=== PATIENT | female | born 1990 | race Caucasian/White ===

== ENCOUNTER 2017-11-10 13:10 | Outpatient (CLI) | payer BC, OTHER ==
--- NOTE | 2017-11-10 16:09 | EKG ---
Test Reason : Blood Pressure : / mmHG Vent. Rate : 106 BPM Atrial Rate : 106 BPM P-R Int : 158 ms QRS Dur : 066 ms QT Int : 332 ms P-R-T Axes : 053 054 035 degrees QTc Int : 441 ms Sinus tachycardia Otherwise normal ECG Confirmed by ALEXX GREENWOOD ([id number]) on 11/10/2017 4:08:41 PM Referred By: [facility] Confirmed By:ALEXX GREENWOOD
== END 2017-11-10 13:11 | disposition home or self-care (01) ==
LOC: LABBT 13:10
PROVIDERS: ATTEND Specialist
DX: Z01.818 Encounter for other preprocedural examination (principal); K80.12 Calculus of gallbladder with acute and chronic cholecystitis without obstruction
CPT/HCPCS: 93005; 93010

== ENCOUNTER 2017-11-11 07:21 | Day surgery (SDC) | payer BC, OTHER ==
[2017-11-10 13:29] VITALS: BMI 46.5
--- NOTE | 2017-11-11 02:25 | HP ---
HISTORY OF PRESENT ILLNESS: Sandra Isaac is a 27-year-old female referred by Deanna Medina, fo r symptomatic gallstones. Patient has been having symptoms since 2012. That is being more severe in the last 4 weeks. She presented to Dr. Medina recently, complaining of characteristic epigastric r ight upper quadrant pain, back radiation, associated with nausea occurring postprandial with almost a ny type of food. Ultrasound obtained, 11/02/2017, [facility] revealing fatty l iver and cholelithiasis and a bile duct of 4 mm. Laboratories obtained at that time revealed normal CBC, comprehensive metabolic profile. Liver function tests were normal. The patient is 5 feet 7 inc hes, 297 pounds, 46 BMI. 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 Today, she was appreciated to have tenderness on exam. The plan is for laparo scopic video cholecystectomy. She understands risks of infection, bleeding, visceral and biliary inj ury and consents. We will plan this tomorrow as an outpatient. Patient has been obese most of her life. She is taking antihypertensive medications. Today, blood p ressure 190/121 (in pain) and has a fatty liver on ultrasound. She denies problems with GERD, stress urinary incontinence. She has menstruation dysfunction, is on oral hormonal replacement to correct that. The patient is interested in bariatric surgery and given her bariatric seminar dates and discu ssed bariatric options. She initially mentioned the laparoscopic adjustable band, but I have discred ited that and explained why we do not perform that anymore due to its poor success and durability and especially in a young age patient. Patient desires to proceed with laparoscopic cholecystectomy and she will attend our bariatric seminar and discuss bariatric surgery in the future. TOBACCO: Less than one-half pack per day. ALCOHOL: Rarely. MEDICATIONS: Amlodipine 5 mg a day, aspirin once a day. ALLERGIES: None. PAST SURGICAL HISTORY: Noncontributory. REVIEW OF SYSTEMS: Ten point noncontributory. PAST MEDICAL HISTORY: Hypertension and fatty liver. PHYSICAL EXAMINATION: VITAL SIGNS: 297 pounds, 5 feet 7 inches, 46 BMI, 190/121 (Patient in pain), 128 heart rate, 99.1 de grees. LUNGS: Clear to auscultation. CARDIAC: Rhythm without murmur or gallop. ABDOMEN: Soft, tenderness in right upper quadrant with positive Ngo's, obese. EXTREMITIES: Unremarkable. No ankle edema, no venous stasis changes. ASSESSMENT AND PLAN: 1. Acute cholecystitis, cholecystitis. I have recommend laparoscopic video cholecystectomy. Risk o f infection, bleeding, visceral and biliary explained. She consents. 2. Tobacco use. I have stressed tobacco cessation. 3. Morbid obesity with comorbidities of hypertension and fatty liver. I have discussed the risk of fatty liver, progressing cirrhosis, but fatty liver can be reversed with successful weight loss. I anne black discussed with her the poor success of nonsurgical weight loss in a patient with a BMI greater th an 40 (hers is at 46.6) and bariatric surgery evaluation recommended and she is interested and will a ttend our seminar. After attending the seminar, we will obtain further laboratories, discuss consult ation with psychology and dietary counseling perioperatively for the bariatric operation that she cho oses. Risks and benefits discussed somewhat, but we will needed further discussion at later visit. 4. Fatty liver. 5. Hypertension.
[2017-11-11] MEDS ORDERED: Levofloxacin 500 mg/D5W 100 ml Premix Bag ONE (08:06)
[2017-11-11] MEDS ORDERED: Ketorolac Tromethamine 30 MG/ML VIAL ONE (08:06)
[2017-11-11] MEDS ORDERED: Scopolamine 1.5 mg/72 hour Patch ONE (08:06)
[2017-11-11] MEDS ORDERED: Lidocaine 2% w/Epinephrine 1:200K 20 ML VIAL ONE (08:55)
[2017-11-11] MEDS ORDERED: Bupivacaine 0.25% HCL 30 ML VIAL ONE (08:55)
[2017-11-11] MEDS ORDERED: Fentanyl 100 MCG/2 ML VIAL ONE ×2 (09:57→11:46)
[2017-11-11] MEDS ORDERED: Meperidine HCl/PF 25 MG/ML VIAL IV PRN (11:57)
[2017-11-11] MEDS ORDERED: Meperidine HCl/PF 25 MG/ML VIAL SLOW IVP PRN (11:57)
[2017-11-11] MEDS ORDERED: Ondansetron HCl/PF 4 MG/2 ML Vial IVP PRN (11:57)
[2017-11-11] MEDS ORDERED: Promethazine HCl 25 MG/ML VIAL IM/IV PRN (11:57)
[2017-11-11] MEDS ORDERED: HYDROcodone/Acetaminophen 5/325 mg Tablet ONE (13:29)
[2017-11-11] MEDS ORDERED: PROPOFOL 200 MG/20 ML VIAL ONE (16:17)
[2017-11-11] MEDS ORDERED: Lidocaine 1% PF 5 ML VIAL ONE (16:17)
[2017-11-11] MEDS ORDERED: Metoprolol Tartrate 5 MG/5 ML VIAL ONE (16:17)
[2017-11-11] MEDS ORDERED: Dexamethasone 20 MG/5 ML VIAL ONE (16:17)
[2017-11-11] MEDS ORDERED: Ondansetron HCl/PF 4 MG/2 ML Vial ONE (16:17)
[2017-11-11] MEDS ORDERED: Glycopyrrolate 0.2 MG/ML 5 ML SYRINGE ONE (16:17)
--- NOTE | 2017-11-11 17:07 | OP ---
DATE OF OPERATION: 11/11/2017 PREOPERATIVE DIAGNOSES: Chronic cholecystitis, cholelithiasis, acute cholecystitis. The patient giv es a history of epigastric mass, marble size, reduced spontaneously resolving her pain. She is obese and palpable hernia defect not appreciated epigastric. Obesity and fatty liver by ultrasound. POSTOPERATIVE DIAGNOSES: Chronic cholecystitis, cholelithiasis, acute cholecystitis. The patient gi ves a history of epigastric mass, marble size, reduced spontaneously resolving her pain. She is obes e and palpable hernia defect, not appreciated epigastric, without hernia identified laparoscopically although there was a fatty falciform ligament overlying the area and they obliterate this area. Obes ity and fatty liver by ultrasound. PROCEDURE: Laparoscopic video cholecystectomy. SURGEON: Dr. Simon Lucio. ANESTHESIA: General. Local 0.5% Marcaine 30 mL, mixed with 1% Xylocaine with epinephrine 20 mL. ESTIMATED BLOOD LOSS: Less than 20-30 mL. PROCEDURE IN DETAIL: Patient taken to the operating room where under general anesthesia, abdomen was prepared with chloraprep, draped in routine fashion. Local anesthetic mixture infiltrated into skin and subcutaneous tissue about each port site. Infraumbilical incision made and pneumoperitoneum to 15 mmHg obtained with the Veress needle, replacing it with a 5 port and laparoscope inserted. Liver was slightly fatty, but normal in contour without evidence of cirrhosis. Fundus of gallbladder sligh tly edematous, thickened wall grasped and reflected cephalad. Omental attachment taken down with the cautery. Infundibulum grasped and reflected laterally. Cystic artery and duct dissected free. Cri tical view obtained and the cystic artery and duct doubly clipped proximally divided and gallbladder dissected free from the liver bed with cautery, removed gallbladder and stones and submitted to Patho logy. Hemostasis ensured with cautery. Irrigant and pneumoperitoneum evacuated after evaluating the epigastric area where there was a bulky fatty falciform ligament obliterating and preventing evaluat ion for an incisional hernia. Irrigant and pneumoperitoneum evacuated. All instruments removed and all skin incisions approximated with interrupted subdermal 4-0 Monocryl and DermaGlue applied.
== END 2017-11-11 13:55 | disposition home or self-care (01) ==
LOC: SDC 07:21
PROVIDERS: ATTEND Specialist
PROC: 0FT44ZZ Resection of Gallbladder, Percutaneous Endoscopic Approach (ICD-10-PCS; principal; 2017-11-11)
DX: K80.10 Calculus of gallbladder with chronic cholecystitis without obstruction (principal); K76.0 Fatty (change of) liver, not elsewhere classified; I10 Essential (primary) hypertension; F17.210 Nicotine dependence, cigarettes, uncomplicated; E66.01 Morbid (severe) obesity due to excess calories; Z68.42 Body mass index [BMI] 45.0-49.9, adult
CPT/HCPCS: 88304; 96374; J0131; J1100; J1885; J1956; J2001; J2405; J2704; J3010; S0020

== ENCOUNTER 2018-09-24 16:20 | Inpatient (IN) | payer BC ==
[~2018-09-24 16:20] MED LIST: Dexamethasone 20 MG/5 ML VIAL ONE; Glycopyrrolate 0.2 MG/ML 5 ML SYRINGE ONE; Ketorolac Tromethamine 30 MG/ML VIAL ONE; Lidocaine 1% PF 5 ML VIAL ONE; Ondansetron PF 4 MG/2 ML Vial ONE; PROPOFOL 200 MG/20 ML VIAL ONE; Succinylcholine Chloride 20 MG/ML 10 ml SYRINGE FS ONE
[2018-09-24] MEDS ORDERED: metroNIDAZOLE 500 MG/100 ML BAG ONE (16:51)
--- NOTE | 2018-09-24 17:14 | RAD ---
CHEST ONE VIEW: 09/24/18 HISTORY: Preop. COMPARISON: None. FINDINGS: Lungs are clear. No pneumothorax or effusion. Cardiac silhouette and mediastinal contours are within normal limits. IMPRESSION: No acute intrathoracic abnormality. POS: [facility]
[2018-09-24] MEDS ORDERED: Bupivacaine/Epinephrine 0.25% 30 ML VIAL ONE (17:33)
[2018-09-24] MEDS ORDERED: Promethazine HCl 25 MG/ML VIAL IM PRN ×2 (17:45→19:57)
[2018-09-24] MEDS ORDERED: Promethazine HCl 25 MG/ML VIAL SLOW IVP PRN (17:45)
[2018-09-24] MEDS ORDERED: Ondansetron HCl/PF 4 MG/2 ML Vial IVP PRN (17:45)
[2018-09-24 17:48] LABS: INR-International Normal Ratio 1.1; PTT 34.5 SEC (22.9-36.1); Prothrombin Time 14.5 SEC (12.0-14.7)
[2018-09-24] MEDS ORDERED: Fentanyl 100 MCG/2 ML VIAL ONE ×2 (18:03→20:09)
--- NOTE | 2018-09-24 18:29 | HP ---
HISTORY: This is a 28-year-old morbidly obese woman with a BMI greater than 40. The patient presented to the emergency department today with a complaint of lower abdominal pain, which started on 09/16/2018. Pain intensified yesterday at 9/10 in intensity. The pain was associated with one bout of diarrhea yesterday. Denied any nausea, vomiting, fever, or chills. The patient has taken [id number] analgesics without any relief. She presented to the emergency department today complaining of persistent abdominal pain. PAST MEDICAL HISTORY: Significant for morbid obesity,chronic depression and essential hypertension. PAST SURGICAL HISTORY: Pertinent for laparoscopic cholecystectomy in October 2017. SOCIAL HISTORY: She admits to 10 pack cigarette smoking history and occasional intake of ethanol in very moderate amount. She denies any illicit drug abuse. She is a G0, P0. FAMILY HISTORY: Notable for essential hypertension, diabetes mellitus in multiple members of extended family, both sides. She has a family history of heart disease and a paternal grandfather with prostatic carcinoma. She denies any family history of inflammatory bowel disease or colon cancer. PREHOSPITALIZATION MEDICATIONS: Include: 1. Amlodipine 5 mg p.o. daily. 2. Metoprolol 25 mg p.o. daily. 3. Zoloft 50 mg p.o. daily. 4. Depo-Provera subcutaneously q.3 months. ALLERGIES: THE PATIENT DENIES ANY KNOWN DRUG ALLERGIES. REVIEW OF SYSTEMS: A 10-point review of systemsessentially unremarkable except for past medical history and chief complaint. PHYSICAL EXAMINATION: GENERAL: This reveals a 28-year-old morbidly obese woman, who is otherwise coherent and interactive, appears stated age. The patient is alert and oriented x3. She appears to be in no acute distress at the time of my evaluation. VITAL SIGNS: Blood pressure 127/82, pulse is 69, respiratory rate is 18, temperature is 98.1 degrees Fahrenheit, oxygen saturation is 98% on room air. HEENT: Reveals normocephalic and atraumatic. Pupils are equal, round, reactive to light and accommodation. Extraocular muscles are intact bilaterally. She has no scleral icterus present. HEART: Reveals regular rate and rhythm. No murmurs or gallops auscultated. LUNGS: Clear to auscultation bilaterally. Her breathing regular and unlabored. ABDOMEN: Soft and morbidly obese. She has right lower quadrant tenderness on McBurney's. She has a positive Rovsing sign. Liver and spleen are otherwise nonpalpable below costal margin. EXTREMITIES: Reveal 2+ radial and pedal pulses bilaterally. No ankle edema is present. NEUROLOGIC: Reveals no focal deficits present. LABORATORY DATA: Laboratory findings today includes CBC with 9300 white blood cells, hemoglobin and hematocrit 14.1 and 43.4 respectively, platelet count is 296,000. Metabolic profile: Sodium 138, potassium 4.3, chloride is 106, bicarb 22, BUN 9 , creatinine 0.82, glucose 95, total bilirubin is 1.4, AST and ALT normal at 13 and 17 respectively. Urinalysis is essentially unremarkable. CT scan of the abdomen and pelvis, which reveals dilated appendix with periappendiceal fat stranding and too small periappendiceal fluid collections. IMPRESSION: 1. Acute appendicitis, likely with perforation. 2. Morbid obesity. 3. History of chronic depression. 4. History of essential hypertension. PLAN: 1. Laparoscopic appendectomy on nightly drainage of periappendiceal abscess. 2. Above findings and plan has been discussed with the patient and her mother at bedside. 3. I have advised the patient of the risks and benefits of proposed surgery to include, but not limited to bleeding, infection, injury to bowel or surrounding structures. 4. The patient indicates understanding of information provided to her today. 5. Answered her questions. 6. The patient is going to consent for this admission and surgical intervention. Job ID: [id number] [facility]
[2018-09-24] MEDS ORDERED: Dextrose 50% Abboject 50 ML SYRINGE SLOW IVP PRN (19:57)
[2018-09-24] MEDS ORDERED: Dextrose 5% in Water 1,000 ML IV PRN (19:57)
[2018-09-24] MEDS ORDERED: hydrALAZINE 20 MG/ML VIAL SLOW IVP PRN (19:57)
[2018-09-24] MEDS ORDERED: Ondansetron PF 4 MG/2 ML Vial IVP PRN (19:57)
[2018-09-24] MEDS ORDERED: traMADol HCl 50 MG TAB PO PRN ×2 (19:59)
[2018-09-24 20:57] VITALS: BMI 43.5
[2018-09-24] MEDS ORDERED: Enoxaparin Sodium 40 MG/0.4 ML SYRINGE SC SCH (21:00)
[2018-09-24] MEDS: Acetaminophen 500 MG TAB PO SCH (21:27)
[2018-09-24] MEDS: Famotidine 20 MG TAB PO SCH (21:28)
[2018-09-24] MEDS: Lactated Ringer's 1,000 ML IV SCH (21:28)
[2018-09-24] MEDS: Famotidine/PF 20 mg/2ml Vial SLOW IVP SCH (21:29)
[2018-09-24] MEDS: Ibuprofen 800 MG TAB PO SCH (21:29)
[2018-09-24] MEDS ORDERED: Amlodipine 10 MG TAB PO SCH (22:45)
[2018-09-24] MEDS: Piperacillin/Tazobactam 4.5 GM in Sodium Chloride 0.9% 100 ML IVPB SCH (23:17)
[2018-09-25] MEDS: Acetaminophen 500 MG TAB PO SCH ×3 (02:11→12:32)
--- NOTE | 2018-09-25 03:26 | OP ---
DATE OF PROCEDURE: 09/24/2018 PREOPERATIVE DIAGNOSIS: Acute appendicitis. POSTOPERATIVE DIAGNOSIS: Acute retrocecal appendicitis. OPERATION PERFORMED: Laparoscopic appendectomy. ANESTHESIA: General endotracheal. ESTIMATED BLOOD LOSS: 20 mL. FLUIDS GIVEN: 1000 mL of crystalloid. COUNTS: Sponge and instrument count were verified as correct x2. COMPLICATIONS: None apparent at the time of operation. INDICATIONS FOR OPERATION: A 28-year-old morbidly obese woman presented with 1-week history of lower abdominal pain, which intensified yesterday. Clinical radiographic examination was consistent with acute appendicitis for which the patient was brought to the operating room for appendectomy. FINDINGS: 1. Consistent with elongated retrocecal appendix with significant periappendiceal inflammatory adhesions. 2. Also noted was enlarged right ovary. DESCRIPTION OF PROCEDURE: Informed consent obtained from the patient, who was brought to the operating room and placed in supine position. Following general anesthesia, the abdomen was sterilely prepped and draped in the usual fashion. The skin below the umbilicus was infiltrated with 0.25% Marcaine with epinephrine. A small curvilinear infraumbilical incision was made using 11 scalpel. The umbilical stalk was grasped with a Miroslava and elevated. Veress needle was inserted through the incision cavity, through which the abdomen was insufflated with 3.5 L of CO2 gas. Intraabdominal pressure noted at . On further abdominal insufflation, the Veress needle was removed and a 5 mm trocar was introduced using a Visiport under laparoscopy. Laparoscopy confirmed proper placement of the port. No injuries to underlying structures. Additional laparoscopy revealed right lower quadrant completely encased in omental adhesions. Under direct laparoscopy, a 5 mm suprapubic and a 12 mm left lower quadrant ports were placed after the overlying skin were infiltrated with 0.25% Marcaine with epinephrine and appropriate incision was made. The patient was placed in the Trendelenburg position, rotated to her left. I then introduced Aidanige grasper to the left lower quadrant port, using this to bluntly take down omental adhesions. We were able then to dissect out the appendix, which was markedly elongated and retrocecal in position. DICTATION ENDED HERE Job ID: [id number]
[2018-09-25] MEDS: Piperacillin/Tazobactam 4.5 GM in Sodium Chloride 0.9% 100 ML IVPB SCH ×2 (05:14→12:34)
[2018-09-25] MEDS: Lactated Ringer's 1,000 ML IV SCH (05:15)
[2018-09-25] MEDS: Ibuprofen 800 MG TAB PO SCH ×2 (05:15→12:32)
[2018-09-25 06:40] LABS: #Lymphocytes 0.8 thou/uL (1.20-3.40); #Monocytes 0.4 thou/uL (0.11-0.59); #Neutrophils 8.9 thou/uL (1.40-6.50); %Basophils 0.1 % (0.0-1.0); %Eosinophils 0.1 % (0.0-10.0); %Lymphocytes 7.7 % (21.0-51.0); %Monocytes 3.8 % (0.0-10.0); %Neutrophils 88.3 % (42.0-75.0); Hemoglobin 12.2 g/dL (12.0-16.0); Mean Corpuscular HGB CONC 33.9 g/dL (32.0-36.0); Mean Corpuscular Hemoglobin 30.7 pg (27.0-31.0); Mean Corpuscular Volume 90.7 fL (78.0-98.0); Mean Platelet Volume 8.9 fL (7.4-10.4); Platelet Count 242 thou/uL (130-400); RBC Distribution Width 12.2 % (11.5-14.5); Red Blood Cell (RBC) Count 3.95 mill/uL (4.20-5.40)
[2018-09-25] MEDS: Famotidine 20 MG TAB PO SCH (08:36)
[2018-09-25] MEDS: Famotidine/PF 20 mg/2ml Vial SLOW IVP SCH (08:37)
[2018-09-25] MEDS ORDERED: Amlodipine 5 MG TAB PO SCH (09:00)
[2018-09-25 12:28] VITALS: BP 108/71; TEMP 98
[2018-09-25] MEDS ORDERED: Amlodipine 10 MG TAB PO SCH ×2 (21:00)
--- NOTE | 2018-09-27 00:22 | DIS ---
DATE OF ADMISSION: 09/24/2018 DATE OF DISCHARGE: 09/25/2018 DISCHARGING PHYSICIAN: Ruddy Garcia DO ADMITTING DIAGNOSIS: Acute appendicitis. DISCHARGE DIAGNOSES: 1. Likely ruptured right ovarian cyst with . 2. Enlarged right ovary. OPERATIONS AND PROCEDURES: Laparoscopic appendectomy on 09/24/[address] Garcia. Please see a separate dictation for operative report. HISTORY AND HOSPITAL COURSE: A 28-year-old morbidly obese woman, presented with abdominal pain. Clinical radiographic examination was consistent with acute appendicitis, for which the patient was brought to the operating room for laparoscopic appendectomy surgery. Markedly enlarged right ovary was noted with a significant amount of surrounding inflammatory process. Markedly elongated, but nonperforated appendix was trapped within the inflammation. Following uneventful laparoscopic appendectomy, the patient was admitted to surgical floor, where she remained until the time of discharge. Postoperative day #1, the patient was ambulating with minimal difficulty. Her pain was adequately controlled on oral analgesics. She was tolerating diet, having normal bowel and urinary function. Incisions intact, clean, and dry. She clearly has no peritoneal signs on examination. The patient will be discharged home today with the following instructions; 1. She sees me in the Surgery Clinic in 2 weeks. 2. She is encouraged to ambulate daily to avoid complications of venous thromboembolism. 3. She may follow up with her behavioral health care coordinator with any recurrent right lower quadrant pain, especially as the large right ovary has been established, she was given a copy of the picture that was obtained from surgery. 4. The patient is encouraged to resume all pre-hospital medications as prescribed by her primary care physician. 5. Additionally, she may take Tylenol 1000 mg p.o. q.6 hours p.r.n. pain alternating this with ibuprofen 800 mg p.o. q.8 hours p.r.n. pain. She was also given a prescription for tramadol 50 mg #30 to be taken 1 to 2 p.o. q.6 hours p.r.n. breakthrough pain. Above instructions given to the patient, who indicates understanding of information given. Answered her questions. The patient has expressed gratitude for the care during this hospitalization and surgery. Job ID: [id number]
== END 2018-09-25 13:30 | disposition home or self-care (01) | DRG 342 ==
LOC: ERS 16:20 → SDC 18:27 → SURG A 20:52
PROVIDERS: ADMIT Surgery; ATTEND Surgery
PROC: 0DTJ4ZZ Resection of Appendix, Percutaneous Endoscopic Approach (ICD-10-PCS; principal; 2018-09-24)
DX: K35.80 Unspecified acute appendicitis (principal); Z68.41 Body mass index [BMI] 40.0-44.9, adult; E66.01 Morbid (severe) obesity due to excess calories; I10 Essential (primary) hypertension; F32.9 Major depressive disorder, single episode, unspecified; F17.210 Nicotine dependence, cigarettes, uncomplicated; N83.201 Unspecified ovarian cyst, right side
CPT/HCPCS: 36415; 71045; 85025; 85610; 85730; 96365; J1650; J2543; J3010; J7050

== ENCOUNTER 2018-11-06 17:37 | Observation (INO) | payer BC ==
[~2018-11-06 17:37] MED LIST changes: -Dexamethasone 20 MG/5 ML VIAL ONE; -Glycopyrrolate 0.2 MG/ML 5 ML SYRINGE ONE; +ISOVUE-370 76%-LOCM 1 ML ONE; -Ketorolac Tromethamine 30 MG/ML VIAL ONE; -Lidocaine 1% PF 5 ML VIAL ONE; -Ondansetron PF 4 MG/2 ML Vial ONE; -PROPOFOL 200 MG/20 ML VIAL ONE; -Succinylcholine Chloride 20 MG/ML 10 ml SYRINGE FS ONE
[2018-11-06 18:18] LABS: #Lymphocytes 1.2 thou/uL (1.20-3.40); #Monocytes 0.7 thou/uL (0.11-0.59); #Neutrophils 12.1 thou/uL (1.40-6.50); %Basophils 0.3 % (0.0-1.0); %Eosinophils 0.3 % (0.0-10.0); %Lymphocytes 8.4 % (21.0-51.0); %Monocytes 4.9 % (0.0-10.0); %Neutrophils 86.1 % (42.0-75.0); Hemoglobin 12.8 g/dL (12.0-16.0); Mean Corpuscular HGB CONC 33.1 g/dL (32.0-36.0); Mean Corpuscular Hemoglobin 29.3 pg (27.0-31.0); Mean Corpuscular Volume 88.6 fL (78.0-98.0); Platelet Count 399 thou/uL (130-400); RBC Distribution Width 11.8 % (11.5-14.5); Red Blood Cell (RBC) Count 4.36 mill/uL (4.20-5.40); White Blood Cell (WBC) Count 14.1 thou/uL (4.8-10.8)
[2018-11-06 18:49] LABS: ALT (SGPT) 18 U/L (8-55); AST (SGOT) 16 U/L (5-34); Albumin 3.8 g/dL (3.5-5.0); Alkaline Phosphatase 146 U/L (40-150); Anion Gap 16 mmol/L (10-20); BUN (Urea Nitrogen) 6 mg/dL (7.0-18.7); Bilirubin, Total 0.7 mg/dL (0.2-1.2); Calc. Creatinine Clearance 0 mL/min (70-130); Calcium 9.6 mg/dL (7.8-10.44); Carbon Dioxide 21 mmol/L (22-29); Chloride 100 mmol/L (98-107); Estimated GFR-MDRD 88; Glucose 94 mg/dL (70-105); Lipase 7 U/L (8-78); Potassium 3.7 mmol/L (3.5-5.1); Protein, Total 8.8 g/dL (6.0-8.3); Sodium 133 mmol/L (136-145)
[2018-11-06] MEDS ORDERED: Morphine 4 MG/ML VIAL ONE (18:50)
[2018-11-06] MEDS ORDERED: Acetaminophen 500 MG TAB ONE (18:50)
--- NOTE | 2018-11-06 18:54 | RAD ---
PORTABLE CHEST ONE VIEW: 11/06/18 at 6:06 p.m. HISTORY: Sepsis. FINDINGS: Comparison made with exam of 09/24/18. The heart size is normal. There is mild elevation of the right hemidiaphragm. No focal areas of cons olidation, pneumothoraces, or pleural effusions are seen. IMPRESSION: No acute process. POS: [facility]
[2018-11-06 19:18] LABS: Bilirubin Moderate (Negative); Blood, Urine Small (Negative); Clarity CLOUDY (Clear); Glucose, Urine (Dipstick) Negative (Negative); Leukocyte Small (Negative); Nitrite Negative (Negative); Protein, Urine (Dipstick) 30 mg/dL (Neg-Trace); Specific Gravity, Urine 1.027 (1.002-1.036)
[2018-11-06 19:19] LABS: Bacteria/HPF None Seen HPF (None Seen); Hyaline Casts/LPF 7-10 HYALINE CAST LPF (0-3 Hyaline)
[2018-11-06 19:20] LABS: Pathc Cast-AUWi Flag 1.88 (0-2.49); Pregnancy Test - Urine (BHCG) Negative (Negative); Pregu Control Background? CLEAR/WHITE (CLR/WHITE); Pregu Control Bar Appear? YES (CONTROL BAR); Renal Epithelial None Seen HPF (0-3); Specific Gravity 1.027 (1.002-1.036); Transitional Epithelial NONE SEEN HPF (0-3)
[2018-11-06] MEDS ORDERED: Azithromycin 500 MG VIAL ONE (20:08)
[2018-11-06] MEDS ORDERED: Piperacillin/Tazobactam 4.5 GM VIAL ONE (20:24)
--- NOTE | 2018-11-06 20:43 | CT ---
CT ABDOMEN AND PELVIS WITH IV CONTRAST: 11/06/18 HISTORY: Right lower quadrant abdominal pain with radiation of the pain to the back. COMPARISON: 10/06/18. FINDINGS: Lung bases are clear. Post cholecystectomy changes are again seen. The liver, spleen, pancreas, bilateral adrenal glands, kidneys, abdominal aorta, incompletely distend ed urinary bladder, and uterus demonstrate a normal CT appearance. Again noted are the fat and soft tissue density structures in each adnexa, larger in size on the righ t with the right adnexal region containing calcifications and measures 5.3 cm. Findings are most sugg estive of bilateral adnexal ovarian dermoids. There are postsurgical changes at the cecal apex likely related to prior appendectomy. There are pers istent inflammatory changes in the right lower quadrant which abut the cecum and the inflammatory ochoa nges has increased when compared to the prior study in 2016. There is no fluid collection seen to sug gest an abscess. there is persistent thickening involving the mendoza of the terminal ileum. There is s uggestion of mild wall thickening involving the cecum as well. Findings may be infectious and/or infl ammatory in etiology and with findings likely related to phlegmon in the right lower quadrant. Again, there is no fluid collection seen to suggest an abscess. Loops of small bowel are normal in caliber. A small amount of free fluid is seen in the pelvis. IMPRESSION: 1. Increase in inflammatory stranding and area of increased density in the right lower quadrant which may be related to phlegmon. These findings are likely attributable to infectious and inflammato ry etiology. There is no fluid collection seen to suggest an abscess. Wall thickening involving the t erminal ileum does appear slightly improved from the prior exam; there is suggested wall thickening i n the region of the cecum. 2. No evidence of a bowel obstruction. 3. Bilateral adnexal dermoids. 4. Small amount of free fluid in the pelvis. 5. Cholecystectomy. 6. Above findings discussed with Dr. Rousseau in the Emergency Department on 11/06/18 at 2012 hours . POS: [facility]
[2018-11-06] MEDS ORDERED: Lactated Ringer's 1,000 ML IV SCH (23:30)
[2018-11-07] MEDS: Morphine 4 MG/ML VIAL SLOW IVP PRN ×5 (00:54→23:37)
[2018-11-07 02:52] VITALS: BMI 41.6
[2018-11-07] MEDS ORDERED: Piperacillin/Tazobactam 3.375 GM in Sodium Chloride 0.9% 100 ML IVPB SCH (03:00)
[2018-11-07] MEDS: Lactated Ringer's 1,000 ML IV SCH ×2 (04:57→15:00)
[2018-11-07] MEDS: Piperacillin/Tazobactam 3.375 GM in Sodium Chloride 0.9% 100 ML IVPB SCH ×3 (08:27→22:13)
--- NOTE | 2018-11-07 10:08 | CON ---
DATE OF CONSULTATION: HISTORY OF PRESENT ILLNESS: The patient is a 28-year-old female, who reports a one-month history of right lower quadrant abdominal pain. She was admitted in September with right lower quadrant abdominal pain. CT at that time showed marked abnormal fat stranding in the right lower quadrant surrounding the appendix. She subsequently underwent an appendectomy, which showed findings consistent with elongated retrocecal appendix with significant periappendiceal inflammatory adhesions. The patient was discharged on 09/25/2018. However, she continued to have pain, and sought treatment in the emergency room, and on 10/06/2018, underwent another CT scan. This showed postoperative changes in the right lower quadrant with some circumferential wall thickening on the distal terminal ileum. This pain became more significant and she sought care in the emergency room. Again, another CT was performed on 11/06/2018, which showed increased inflammatory stranding and area of increased density in the right lower quadrant, which may be related to phlegmon. No abscess is seen. She reports a 10-pound weight loss. She denies any change in her bowel function. She has a colonoscopy many years ago for blood in her stool, which showed only hemorrhoids. PAST MEDICAL HISTORY: Includes hypertension. PAST SURGICAL HISTORY: Includes; 1. Appendectomy. 2. Cholecystectomy. ALLERGIES: NO KNOWN ALLERGIES. MEDICATIONS: Include; 1. Norvasc 5 mg p.o. daily. 2. Metoprolol 25 mg p.o. daily. 3. Zoloft 50 mg p.o. daily. SOCIAL HISTORY: She does smoke 1-2 cigarettes per day. Does not drink alcohol. FAMILY HISTORY: Negative for inflammatory bowel disease. REVIEW OF SYSTEMS: CONSTITUTIONAL: Positive for fever. Positive for weight loss. EYES: No blurred vision or double vision. ENT: No sore throat or earaches. CARDIOVASCULAR: No chest pain or palpitations. PULMONARY: No shortness of breath, cough, or wheezing. GI: See above. : No hematuria. Positive for dysuria, but this is more of a pain associated with urination. MUSCULOSKELETAL: No joint pain or muscle weakness. NEUROLOGIC: No numbness or seizure activity. SKIN: No rashes. PHYSICAL EXAMINATION: GENERAL: Shows overweight female, in no acute distress. VITAL SIGNS: Temperature is 99, pulse 100, respiratory rate 20, and blood pressure 133/81. HEENT: Unremarkable. NECK: Supple. CHEST: Clear. CARDIOVASCULAR: Regular rate and rhythm. ABDOMEN: Soft, tender in the right lower quadrant without rebound or guarding. Bowel sounds are present, normoactive. RECTAL: Deferred. EXTREMITIES: Normal. NEUROLOGIC: Nonfocal. LABORATORY DATA: White blood cell count of 14.1, hemoglobin 12.8, and hematocrit 38.6. Chemistry shows sodium of 133, CO2 of 21, and total protein 8.8. Urinalysis shows moderate bilirubin, small leukocyte esterase, 11-20 rbc's. H. pylori antibody is normal. ASSESSMENT: Right lower quadrant pain with associated right lower quadrant inflammatory phlegmon - suspicious for Crohn disease. RECOMMENDATIONS: Colonoscopy tomorrow. Job ID: [id number]
[2018-11-07] MEDS ORDERED: Acetaminophen 1,000 MG in Premix Bag 1 BAG IVPB PRN (10:14)
[2018-11-07] MEDS ORDERED: Ondansetron PF 4 MG/2 ML Vial IVP PRN (10:14)
[2018-11-07] MEDS ORDERED: Pantoprazole 40 MG VIAL IVP SCH ×2 (10:30→12:00)
--- NOTE | 2018-11-07 10:35 | HP ---
CHIEF COMPLAINT: Right-sided abdominal pain, recurrent, associated with fevers. HISTORY OF PRESENT ILLNESS: This is a 28-year-old female who has been previously here for laparoscopic appendectomy by Dr. Garcia. She had one additional presentation to the hospital for recurrent right lower abdominal pain. She presents with CT showing stranding changes in the right lower quadrant. She has history of known right ovarian cystic mass, has seen Dr. Roosevelt Germain for that at [facility], and he planned surgery. Her pain is described as crampy, sharp, 8/10, comes and goes in the right lower quadrant associated with nausea, no vomiting. No known previous history of inflammatory bowel disease or Crohn's. She states that Dr. Garcia told her at time of appendectomy that he thought maybe it was more related to ovarian cyst. PAST MEDICAL HISTORY: Includes hypertension, morbid obesity. PAST SURGICAL HISTORY: Laparoscopic cholecystectomy, laparoscopic appendectomy. SOCIAL HISTORY: She smokes, occasional alcohol, no other drugs. MEDICATIONS: Include amlodipine, metoprolol, Zoloft, Depo-Provera. GI HISTORY: Noncontributory to GI malignancy or anesthetic related complication. PHYSICAL EXAMINATION: VITAL SIGNS: Blood pressure 133/81, pulse 100, respirations 20, temperature 99. GENERAL: Alert, oriented x3. No acute distress. HEENT: Sclerae anicteric. Oropharynx clear. NECK: No lymphadenopathy. CHEST: Clear. HEART: Regular rate and rhythm. ABDOMEN: Soft, tender in the right lower quadrant with localized guarding. No rebound. No abdominal hernias. EXTREMITIES: No ischemia or edema to extremities. LABORATORY DATA: White count is 14, hemoglobin 12, platelet count is 399. Creatinine 0.77, sodium 133. Liver function tests normal, lipase is 7. Urine; 11 to 20 RBCs, 4 to 6 WBCs, moderate bilirubin, small blood, negative glucose, small leukocyte esterase, negative nitrite. ASSESSMENT: CT scan shows right lower quadrant phlegmonous changes and no change in previous bilateral adnexal dermoid. PLAN: Admit, IV fluid, antibiotics. Ask Dr. Rice to see, Dr. Rice has seen her and recommends endoscopy tomorrow to rule out Crohn's disease. This could be another reason she has recurrent phlegmonous or inflammatory change in the right lower quadrant. Assuming that is ruled out, then she can proceed with right ovarian cyst removal, which is to be scheduled with Dr. Germain. Job ID: [id number]
[2018-11-07] MEDS ORDERED: Sodium Chloride 0.9% (PF) 10 ML VIAL FS PRN (11:58)
[2018-11-07] MEDS ORDERED: GoLYTELY 4,000 ml Bottle PO SCH (18:00)
[2018-11-07] MEDS: Amlodipine 10 MG TAB PO SCH (22:12)
[2018-11-08] MEDS: Morphine 4 MG/ML VIAL SLOW IVP PRN ×2 (03:12→13:52)
[2018-11-08] MEDS: Piperacillin/Tazobactam 3.375 GM in Sodium Chloride 0.9% 100 ML IVPB SCH ×4 (03:14→20:09)
[2018-11-08] MEDS: Lactated Ringer's 1,000 ML IV SCH ×2 (03:17→20:10)
[2018-11-08] MEDS: Pantoprazole 40 MG VIAL IVP SCH (08:34)
[2018-11-08] MEDS ORDERED: Ondansetron HCl/PF 4 MG/2 ML Vial IVP PRN (10:13)
[2018-11-08] MEDS ORDERED: Promethazine HCl 25 MG/ML VIAL IM PRN (10:13)
[2018-11-08] MEDS ORDERED: Promethazine HCl 25 MG/ML VIAL SLOW IVP PRN (10:13)
[2018-11-08] MEDS ORDERED: Fentanyl 100 MCG/2 ML VIAL ONE (10:14)
--- NOTE | 2018-11-08 10:34 | OP ---
DATE OF PROCEDURE: 11/08/2018 PREOPERATIVE DIAGNOSES: 1. Abnormal CT scan. 2. Right lower quadrant pain. DESCRIPTION OF PROCEDURE: After informed consent was obtained, the patient was placed in a left lateral decubitus position. Anesthesia was administered per the Anesthesia Department. Forward-viewing endoscope was inserted into the rectum after perianal inspection and rectal exam were normal. As passed to the cecum and into the ileum, the ileum was diffusely inflamed. Approximately 8 cm of the ileum were visualized and there were ulcerations, erythema, and edema. Biopsies were taken of the ileum. The cecum was edematous secondary to changes seen in the ileum. No mucosal abnormalities were noted in the cecum. The ascending, transverse, descending, sigmoid, and rectum were normal. Retroflexion in the rectum was normal. Some random biopsies were taken of the colon. ASSESSMENT: 1. Ileitis - consistent with Crohn disease, status post biopsy. 2. Otherwise normal colonoscopy. RECOMMENDATIONS: 1. Await histopathology. 2. Begin IV steroids. 3. Begin Pentasa. Job ID: [id number]
--- NOTE | 2018-11-08 11:10 | PRG ---
DATE OF SERVICE: 11/08/2018 SUBJECTIVE: Ms. Isaac's pain is slightly improved today. She had a colonoscopy this morning, which shows severe ileitis. OBJECTIVE: VITAL SIGNS: She is afebrile. Vital signs are stable. ABDOMEN: Soft, cat tender in the right lower quadrant. ASSESSMENT AND PLAN: Ileitis, likely consistent with Crohn's. Await biopsies. Dr. Rice started her on some steroids. Potentially, home in the next 24 to 48 hours. Job ID: [id number]
[2018-11-08] MEDS: methylPREDNISolone Sod Succ 40 MG VIAL IVP SCH ×2 (13:45→23:13)
[2018-11-08] MEDS ORDERED: Lidocaine 1% PF 5 ML VIAL ONE (15:15)
[2018-11-08] MEDS ORDERED: PROPOFOL 200 MG/20 ML VIAL ONE (15:15)
[2018-11-08] MEDS: Amlodipine 10 MG TAB PO SCH (20:09)
[2018-11-09] MEDS: Piperacillin/Tazobactam 3.375 GM in Sodium Chloride 0.9% 100 ML IVPB SCH ×3 (02:24→14:59)
[2018-11-09] MEDS: methylPREDNISolone Sod Succ 40 MG VIAL IVP SCH ×2 (05:30→14:59)
[2018-11-09] MEDS: Pantoprazole 40 MG VIAL IVP SCH (08:53)
[2018-11-09] MEDS: Lactated Ringer's 1,000 ML IV SCH (09:28)
--- NOTE | 2018-11-09 12:48 | PDOC.GSPN ---
Surgery Progress Note: Subj - Subjective Narrative: Her pain is mostly gone now. Tolerated liquids Surgery Progress Note: Obj - Vital signs Vital signs: Vital Signs - Most Recent Temp Pulse Resp BP Pulse Ox 97.2 F L 75 18 109/65 97 11/09/18 08:00 11/09/18 08:00 11/09/18 08:00 11/09/18 08:00 11/09/18 08:00 - Physical Exam General: no distress Cardiovascular: regular rate and rhythm Respiratory: clear to auscultation Abdomen: soft, non tender, nondistended Surgery Progress Note: Results - Labs Result Diagrams: 11/06/18 18:05 11/06/18 18:05 Surgery Progress Note: A/P - Problem (1) Ileitis Current Visit: Yes Code(s): K52.9 - NONINFECTIVE GASTROENTERITIS AND COLITIS, UNSPECIFIED Status: Acute Assessment and Plan: Suspect Crohns disease -Better on Steroids/Pentasa -Home later today if cleared by Dr. Rice
[2018-11-09 16:02] VITALS: BP 114/67; TEMP 98.3
--- NOTE | 2018-11-09 19:26 | PRG ---
DATE OF SERVICE: 11/09/2018 SUBJECTIVE: The patient is feeling much better. She is having less pain. She is tolerating diet well. OBJECTIVE: VITAL SIGNS: Temperature 98.3, pulse 64, respiratory rate 20, and blood pressure 114/67. CHEST: Clear. CARDIOVASCULAR: Regular rate and rhythm. ABDOMEN: Soft and nontender without organomegaly or masses. Bowel sounds are present. LABORATORY DATA: Laboratory shows no new laboratories. Histopathology showed ileitis consistent with Crohn disease. Colon biopsies were normal. ASSESSMENT: Crohn's ileitis - much improved on Pentasa and steroids. RECOMMENDATIONS: 1. Stable for discharge from GI standpoint. 2. Outpatient prednisone. 3. Outpatient Pentasa. 4. Regular diet. 5. Stop smoking. 6. Follow up in my office in 1 weeks' time. Job ID: [id number]
[2018-11-10 02:04] LABS: Chlamydia by PCR Not Detected (NotDetected); GC by PCR Not Detected (NotDetected)
== END 2018-11-09 19:10 | disposition home or self-care (01) ==
LOC: ERS 17:37 → SURG B 20:24
PROVIDERS: ADMIT Surgery; ATTEND Surgery
PROC: 0DBB8ZX Excision of Ileum, Via Natural or Artificial Opening Endoscopic, Diagnostic (ICD-10-PCS; principal; 2018-11-08)
DX: K52.9 Noninfective gastroenteritis and colitis, unspecified (principal); I10 Essential (primary) hypertension; F17.210 Nicotine dependence, cigarettes, uncomplicated; E66.01 Morbid (severe) obesity due to excess calories; Z68.41 Body mass index [BMI] 40.0-44.9, adult; Z79.899 Other long term (current) drug therapy; Z90.89 Acquired absence of other organs
CPT/HCPCS: 71045; 74177; 80053; 81003; 81015; 81025; 83605; 83690; 85025; 87040; 87045; 87046; 87086; 87449; 87480; 87491; 87510; 87591; 87660; 87899; 88305; 96361; 96365; 96366; 96375; 96376; C9113; G0378; J0456; J2001; J2270; J2543; J2704; J2920; J3010; J7050; Q9966

== ENCOUNTER 2018-11-23 14:12 | Outpatient (CLI) | payer BC ==
--- NOTE | 2018-11-23 15:08 | RAD ---
PA AND LATERAL CHEST: Indication: Crohn's disease. Comparison: 10-27-18 FINDINGS: Lungs are clear. Heart size is normal. No pleural effusion or pneumothorax is evident. No acute osseo us abnormality is noted. IMPRESSION: No acute cardiopulmonary abnormality. POS: [facility]
== END 2018-11-23 14:13 | disposition home or self-care (01) ==
LOC: BICRAD 14:12
PROVIDERS: ATTEND Internal Medicine Gastroenterology
DX: K50.00 Crohn's disease of small intestine without complications (principal); R76.12 Nonspecific reaction to cell mediated immunity measurement of gamma interferon antigen response without active tuberculosis
CPT/HCPCS: 71046

== ENCOUNTER 2018-12-11 21:01 | Inpatient (IN) | payer BC ==
[2018-12-11 22:39] LABS: #Lymphocytes 1.3 thou/uL (1.20-3.40); #Monocytes 0.8 thou/uL (0.11-0.59); #Neutrophils 17.4 thou/uL (1.40-6.50); %Eosinophils 0.1 % (0.0-10.0); %Lymphocytes 6.9 % (21.0-51.0); %Monocytes 3.9 % (0.0-10.0); %Neutrophils 89.1 % (42.0-75.0); Hemoglobin 11.6 g/dL (12.0-16.0); Mean Corpuscular HGB CONC 32.4 g/dL (32.0-36.0); Mean Corpuscular Hemoglobin 28.8 pg (27.0-31.0); Mean Corpuscular Volume 88.9 fL (78.0-98.0); Mean Platelet Volume 7.4 fL (7.4-10.4); Platelet Count 369 thou/uL (130-400); RBC Distribution Width 13.4 % (11.5-14.5); Red Blood Cell (RBC) Count 4.04 mill/uL (4.20-5.40); White Blood Cell (WBC) Count 19.6 thou/uL (4.8-10.8)
[2018-12-11 22:44] LABS: BHCG - Serum Negative (NEGATIVE); Pregs Control Background? CLEAR/WHITE (CLR/WHITE); Pregs Control Bar Appear? YES (CONTROL BAR)
[2018-12-11 22:52] LABS: ALT (SGPT) 15 U/L (8-55); AST (SGOT) 11 U/L (5-34); Albumin 3.5 g/dL (3.5-5.0); Alkaline Phosphatase 110 U/L (40-150); Anion Gap 12 mmol/L (10-20); BUN (Urea Nitrogen) 12 mg/dL (7.0-18.7); Bilirubin, Total 0.5 mg/dL (0.2-1.2); Calc. Creatinine Clearance 0 mL/min (70-130); Calcium 9.7 mg/dL (7.8-10.44); Carbon Dioxide 24 mmol/L (22-29); Chloride 104 mmol/L (98-107); Estimated GFR-MDRD 76; Globulin 4.3 g/dL (2.4-3.5); Glucose 80 mg/dL (70-105); Potassium 3.6 mmol/L (3.5-5.1); Protein, Total 7.8 g/dL (6.0-8.3); Sodium 136 mmol/L (136-145)
[2018-12-11] MEDS ORDERED: Ondansetron PF 4 MG/2 ML Vial ONE (23:27)
[2018-12-11] MEDS ORDERED: Morphine 4 MG/ML VIAL ONE (23:36)
[2018-12-11] MEDS ORDERED: Meropenem 2 GM in Sodium Chloride 0.9% 100 ML IVPB SCH (23:45)
[2018-12-12] MEDS ORDERED: Morphine 4 MG/ML VIAL SLOW IVP PRN (00:55)
[2018-12-12] MEDS ORDERED: Ondansetron ODT 4 MG TAB PO PRN (01:02)
[2018-12-12] MEDS ORDERED: Ondansetron PF 4 MG/2 ML Vial IVP PRN ×2 (01:03→10:05)
[2018-12-12] MEDS: Morphine 4 MG/ML VIAL SLOW IVP PRN ×5 (01:52→10:39)
[2018-12-12] MEDS: Sodium Chloride 0.9% 1,000 ML IV SCH ×2 (01:52→08:50)
[2018-12-12] MEDS: Acetaminophen 1,000 MG in Premix Bag 1 BAG IVPB PRN ×3 (01:55→17:25)
[2018-12-12 02:04] VITALS: BMI 41.5
--- NOTE | 2018-12-12 09:33 | CT ---
CT ABDOMEN AND PELVIS: 12/11/2018 HISTORY: Right lower quadrant pain. Crohn disease. COMPARISON: 11/06/2018 TECHNIQUE: Axial CT imaging at 5 mm intervals, from the lung bases through the pubic symphysis, with IV contrast . Coronal reformatted imaging obtained. FINDINGS: The imaged lung bases are unremarkable. There is no free intraperitoneal air seen. Cholecystectomy clips are present. The liver, spleen, pancreas, and adrenal glands are unremarkable. There is a non obstructing punctate stone in the lower pole of the left kidney, measuring in the 2-3 mm range. There is a delayed nephrogram involving the right kidney, and there is right-sided hydronephrosis/hyd roureter. This hydroureter, on the right, extends into the region of the right lower quadrant, where there is prominent right lower quadrant inflammatory change, including fat stranding, thick-walled l oops of small bowel, and a new ill-defined fluid collection, on image 63, measuring approximately 2.5 cm, suggesting abscess. In addition, there is a second new fluid collection, just lateral to this, posterior to the cecum, on image 57, measuring approximately 2.2 cm, suggesting an additional develop ing abscess. Thus, the hydronephrosis and hydroureter on the right may be secondary to this inflamma tory process. However, on axial image 85 and coronal image 98, there is a punctate calcification in the expected location of the ureterovesicular junction, which measures approximately 4 mm, suggesting the possibility of a distal obstructing right ureteral calculus. There is a fat-containing mass, wh ich also contains soft tissue density and calcification within the right lower quadrant, measuring up to 5 cm, suggesting a right ovarian dermoid. A similar, smaller, fat-containing lesion within the left hemipelvis suggests a 3 cm left ovarian dermoid. There is nonspecific mild wall thickening of the distal sigmoid colon, which could represent a focal area of distal sigmoid colitis. This may also be reactive to the right lower quadrant inflammatory p rocess mentioned above. There is no evidence for bowel obstruction. The vascular structures appear patent. No significant lymphadenopathy is seen within the abdomen or the pelvis. The osseous structures of the abdomen/pelvis demonstrate no worrisome lytic or blastic b one lesions. IMPRESSION: 1. There are two new right lower quadrant fluid collections, both of which are suspicious for absces s and both of which do not appear amenable to CT guided drainage, secondary to small size and/or cent ral location, Adjacent wall thickening of small bowel loops, as well as sigmoid colon, may be reacti ve in nature or may be on the basis of Crohn disease. 2. There is new hydronephrosis and hydroureter, with a delayed nephrogram on the right. Etiology ma y be on the basis of distal obstructing right ureteral stone and/or right lower quadrant inflammatory change. 3. Bilateral ovarian dermoids. 4. Nonobstructing stone, lower pole, left kidney. POS: [facility]
[2018-12-12] MEDS ORDERED: Sodium Chloride 0.9% 1,000 ML IV SCH (10:03)
[2018-12-12] MEDS ORDERED: hydrALAZINE 20 MG/ML VIAL SLOW IVP PRN (10:05)
--- NOTE | 2018-12-12 10:39 | HP ---
CHIEF COMPLAINT: Recurrent right lower quadrant pain associated with bloating. HISTORY OF PRESENT ILLNESS: This is a 28-year-old female, who presents with known Crohn disease diagnosed on recent hospitalization. She has had recurrent right lower quadrant pain and phlegmon on CT after laparoscopic appendectomy by Dr. Garcia. Dr. Rice performed endoscopy, which revealed textbook Crohn's changes to the terminal ileum. She was started on Pentasa and steroids. She has seen Dr. Rice as an outpatient. She was set to start Humira next week just not feeling as well in the last few days, more right lower quadrant pain and back pain. No change in her bowel. She has constant diarrhea associated with her Crohn's. No known dysuria. No hematuria. PAST MEDICAL HISTORY: Includes hypertension and obesity. PAST SURGICAL HISTORY: Laparoscopic cholecystectomy and laparoscopic appendectomy. SOCIAL HISTORY: She is a former smoker. No alcohol or other drugs. REVIEW OF SYSTEMS: Ten system review of systems otherwise negative as described above. MEDICATIONS: Include; 1. Amlodipine. 2. Metoprolol. 3. Pentasa. 4. Steroid taper. 5. Zoloft. PHYSICAL EXAMINATION: VITAL SIGNS: Blood pressure is 130/83, pulse 87, respirations 18. GENERAL: She is afebrile. HEENT: Sclerae anicteric. Oropharynx clear. NECK: No lymphadenopathy. CHEST: Clear. HEART: Regular rate and rhythm. ABDOMEN: Soft and tender in the right lower quadrant with localized guarding without rebound. EXTREMITIES: No ischemia or edema to extremities. LABORATORY DATA: White cell count is 19, hemoglobin 11, and platelet count is 369. Creatinine 0.87. DIAGNOSTIC DATA: CT scan shows again phlegmonous changes in the right lower quadrant. There are two fluid collections that are small in size. There is right-sided hydronephrosis and question of UPJ obstruction. ASSESSMENT: Persistent Crohn's with likely exacerbation, now with hydronephrosis, but also kidney stone in the ureter. PLAN: Broad-spectrum antibiotics. Continue n.p.o. for now. Dr. Kasper is planning on placing stent due to her hydronephrosis. I have also discussed with Dr. Matthew Mcneal, who is covering for Dr. Rice this weekend. Job ID: [id number]
[2018-12-12] MEDS: Piperacillin/Tazobactam 3.375 GM in Sodium Chloride 0.9% 100 ML IVPB SCH ×3 (10:40→21:26)
[2018-12-12] MEDS ORDERED: Heparin 1,000 UNITS/ML VIAL ONE (11:11)
[2018-12-12] MEDS ORDERED: Fentanyl 100 MCG/2 ML VIAL ONE ×2 (12:15→13:08)
[2018-12-12] MEDS ORDERED: Iothalamate Meglumine 60% 50 ML VIAL FS ONE (12:18)
[2018-12-12] MEDS ORDERED: Midazolam HCl 2 mg/2 ml Vial ONE (13:08)
[2018-12-12] MEDS ORDERED: PROPOFOL 200 MG/20 ML VIAL ONE (14:50)
[2018-12-12] MEDS ORDERED: Lidocaine 1% PF 5 ML VIAL ONE (14:50)
[2018-12-12] MEDS ORDERED: Ondansetron PF 4 MG/2 ML Vial ONE (14:50)
[2018-12-12] MEDS ORDERED: Hydrocortisone Sod Succ/PF 100 mg/2 ml Vial ONE (14:50)
--- NOTE | 2018-12-12 17:31 | CON ---
DATE OF CONSULTATION: 12/12/2018 CHIEF COMPLAINT: Right-sided hydronephrosis. HISTORY: Ms. Isaac is a 28-year-old female with a history of Crohn disease. She presents to the hospital with some right lower quadrant pain and some right flank pain and mild nausea. Had evaluation in the emergency room by CT, demonstrated a fluid collection in the pelvis with right-sided hydroureter and hydronephrosis. There is also questionable distal right ureteral stone, although it is a quite subtle calcification in the region of the distal right ureter. She has no prior history of stone disease. She denies any dysuria, although she has noted some increased urgency to void without significant urine output. PAST MEDICAL HISTORY: Hypertension and Crohn disease. PAST SURGICAL HISTORY: Laparoscopic cholecystectomy and laparoscopic appendectomy. SOCIAL HISTORY: She denies excessive alcohol use. She does not smoke cigarettes, although she has in the past. CHRONIC MEDICATIONS: 1. Amlodipine. 2. Metoprolol. 3. Pentasa. 4. Steroids. 5. Zoloft. REVIEW OF SYSTEMS: RESPIRATORY: Denies shortness of breath. CARDIOVASCULAR: Denies chest pain or palpitations. GASTROINTESTINAL: Please see history of present illness. She does have chronic diarrhea. GENITOURINARY: Please see history of present illness. NEUROLOGIC: Denies any dizziness or unilateral weakness or numbness. PHYSICAL EXAMINATION: GENERAL: She is awake and alert. She is in no distress. VITAL SIGNS: Blood pressure 132/84, pulse 88, respiratory rate 18, and temperature 98. HEENT: Normocephalic and atraumatic. NECK: Supple without masses. CHEST: Clear to auscultation. ABDOMEN: Soft with some tenderness in the right lower quadrant. No palpable masses noted. LABORATORY DATA: Creatinine 0.87. DIAGNOSTIC DATA: CT scan right-sided hydroureter with some mild right-sided hydronephrosis, hydroureter down to the right lower quadrant phlegmon. IMPRESSION: Right-sided hydronephrosis, most likely from inflammatory changes in the pelvis, although there is a questionable distal right ureteral stone. I recommended endoscopic evaluation by ureteroscopy with stone extraction if stone is present and stent placement. I discussed the procedure, potential limitations, alternatives, and complications. She wished to proceed. Job ID: [id number]
--- NOTE | 2018-12-12 18:26 | OP ---
DATE OF PROCEDURE: 12/12/2018 PREOPERATIVE DIAGNOSIS: Right hydronephrosis, possible right ureteral stone. POSTOPERATIVE DIAGNOSIS: Right ureteral stone. PROCEDURE PERFORMED: Cystoscopy, ureteroscopy, stone extraction, and stent placement. ANESTHESIA: General. INDICATIONS: Ms. Isaac is a 28-year-old female presents to the hospital with right lower quadrant and flank pain. CT scan demonstrated some abscess formation, possible abscess formation in the pelvis from probable Crohn disease. She had right-sided hydroureter nephrosis and hydroureter. There was also a question of a distal right ureteral stone, although, this could not be definitively proven on CT scan. She was brought to the operating room for further evaluation and treatment. DESCRIPTION OF PROCEDURE: The patient was given general anesthesia and IV antibiotics. She was also given stress dose steroids. Cystoscope was passed into the bladder and the bladder was examined in its entirety. There were no mucosal lesions. Right ureter was intubated with a floppy tip guidewire, which was passed cephalad under fluoroscopic control. Rigid ureteroscopy was then performed revealing a right ureteral stone. Basket was utilized to remove the stone. A 6 x 26 double-J stent was passed over the guidewire and coiled in the right renal pelvis and the bladder was determined fluoroscopically and cystoscopically. The attached string was cut. Bladder was drained. The patient was transferred to the operating room to recovery room in stable condition. COMPLICATION: None. ESTIMATED BLOOD LOSS: Minimal. Job ID: [id number] [facility]
[2018-12-12] MEDS: Amlodipine 10 MG TAB PO SCH (20:15)
[2018-12-12] MEDS ORDERED: Non-Formulary Item 1 EACH (Sertraline Hcl [Sertraline Hcl] 50 MG) PO SCH (21:00)
[2018-12-12] MEDS ORDERED: predniSONE 20 MG TAB PO SCH (22:30)
[2018-12-13] MEDS: Piperacillin/Tazobactam 3.375 GM in Sodium Chloride 0.9% 100 ML IVPB SCH ×4 (03:57→21:00)
--- NOTE | 2018-12-13 04:04 | CON ---
DATE OF CONSULTATION: 12/12/2018 CHIEF COMPLAINT: Abdominal pain. HISTORY OF PRESENT ILLNESS: Ms. Isaac is a 28-year-old woman who originally presented with right lower quadrant abdominal pain back in September. She has a history of an ovarian cyst or dermoid and originally she thought this was the source for the pain. She had a CT scan of the abdomen and pelvis performed on 09/24 that showed fat stranding in the right lower quadrant with two adjacent fluid collection, thickening of the terminal ileum, and some inflammation of the appendix. She subsequently underwent appendectomy on 09/24/2018. Her pain really did not improve after the appendectomy and she returned to the emergency room on 10/[address] scan and also had a CT scan on 11/06, which showed again inflammatory changes in the right lower quadrant and thickening of the terminal ileum. She was evaluated by Dr. Rice on 11/07/2018 and colonoscopy was then performed on 11/08/2018, which showed ulcerations and inflammation in the terminal ileum consistent with Crohn's disease. The colonic mucosa appeared normal. Biopsies from the terminal ileum showed chronic active ileitis. The colonic random biopsies were normal. She was started on prednisone and Pentasa and she did have improvement in her pain after that. She followed up in GI clinic and ultimately received a couple of weeks of prednisone at 40 mg. She was then evaluated with the plan to start Humira and she was tested for hepatitis B surface antigen and was negative. She had QuantiFERON drawn, which turned out to be indeterminate, so she was referred to Dr. Ruiz and has an appointment scheduled for Thursday of this week prior to starting Humira. Her pain did improve and her bowel movements returned more towards normal. She tapered the prednisone down from 40 mg to 35 mg a couple of weeks ago and it remained on the 35 mg dose. Over the last few days, she has had worsening stabbing right lower quadrant pain with twisting and radiation to her right lower back. She came back to the emergency room last night and CT scan was performed that showed hydronephrosis on the right with a possible stone in the ureter on the right. Also two fluid collections concerning for abscesses were identified measuring 2.5 cm and 2.2 cm. She underwent cystoscopy by Dr. Kasper today and she had stone extraction from the right ureter. She had a stent then left in place and this evening following her stone extraction, she states that her pain completely resolved. PAST MEDICAL HISTORY: Crohn disease, obesity, and hypertension. PAST SURGICAL HISTORY: Cholecystectomy, appendectomy, and colonoscopy. FAMILY HISTORY: Negative for GI malignancy or inflammatory bowel disease. SOCIAL HISTORY: She smokes 3 cigarettes per day, down from 5 to 7 per day previously. No alcohol. No drugs. ALLERGIES: NO KNOWN DRUG ALLERGIES. MEDICATIONS: Prior to admission; 1. Prednisone 35 mg daily. 2. Sertraline 50 mg at bedtime. 3. Metoprolol 25 mg daily. 4. Mesalamine in the form of Pentasa 500 mg tablets 2 tablets four times a day. 5. Amlodipine 10 mg at bedtime. REVIEW OF SYSTEMS: Negative x10 systems reviewed except as stated in the history of present illness. No joint, eye, or skin complaints. PHYSICAL EXAMINATION: VITAL SIGNS: Temperature 98.5, pulse 100, and blood pressure 125/79. GENERAL: She is in no acute distress. She is alert and oriented x3. She is obese. EYES: Have no scleral icterus. Oropharynx is clear without lesions. No cervical or supraclavicular lymphadenopathy. LUNGS: Clear to auscultation bilaterally. HEART: Regular rate and rhythm without murmur. ABDOMEN: Soft. Minimal tenderness in the right lower quadrant without guarding. Bowel sounds are present. EXTREMITIES: No lower extremity edema. Cranial nerves are grossly intact. LABORATORY DATA: White blood cell count 19.6, hemoglobin 11.6, and platelets 369. Creatinine 0.87. Bilirubin 0.5, AST 11, ALT 15, and alkaline phosphatase 30. Albumin 3.5. Serum test was negative. Hepatitis B surface antigen is negative. Hepatitis B core IgM is negative. Hepatitis C antibody is negative. Hepatitis A IgM is negative. QuantiFERON is indeterminate. IMPRESSION: 1. Crohn's disease of the terminal ileum. Her symptoms have improved on prednisone and she has been on 40 mg for a couple of weeks and then taper down to 35 mg for a couple of weeks. Given that she has been on steroids continuously over the last month at least. We will restart the steroids today. She is being evaluated with the goal to start Humira for long-term treatment of her Crohn disease; however, now complicating factor of the two possible abscess is noted by this CT scan. Abscess would be a relative contraindication to starting Humira at this point. We also will need to complete the evaluation by Dr. Ruiz regarding the indeterminate QuantiFERON. We will check hepatitis A total antibody and hepatitis B surface antibody to determine immune status and vaccinate if she is not immune. Plan is to ask Dr. Ruiz regarding shingles vaccine. She has never had the chickenpox. The old shingles vaccine is a life virus and she has not had prior chickenpox. She could potentially have shown Shingrix vaccine, which is not a live virus vaccine. I will defer this for Dr. Ruiz' opinion regarding this as well. Also regarding chronic immune suppression, she is advised to use sun screen and should have yearly dermatology exams. 2. Two small abscesses in the right lower quadrant measuring 2.2 and 2.5 cm. She is on Zosyn for these now. Question is whether or not this will require percutaneous drainage or intervention in addition to the antibiotics. We will review this with radiology's to see if these sites are accessible and again will ask Dr. Ruiz' opinion regarding that and request that he see her tomorrow. 3. Indeterminate QuantiFERON. RECOMMENDATIONS: 1. Restart prednisone p.o. daily. 2. Continue Pentasa 1000 mg four times daily; however, mesalamine may have a limited role in small bowel Crohn disease. 3. Goal in her treatment is to start an anti-TNF with Humira. However, the abscesses and the QuantiFERON status have to be addressed prior to initiation of the new medication. 4. Check hepatitis A total antibody and hepatitis B surface antibody. 5. Consultation with Dr. Ruiz tomorrow. Job ID: [id number]
[2018-12-13] MEDS: Acetaminophen 500 MG TAB PO PRN ×2 (06:55→18:50)
[2018-12-13] MEDS: predniSONE 20 MG TAB PO SCH (08:08)
--- NOTE | 2018-12-13 10:19 | PRG ---
DATE OF SERVICE: 12/13/2018 SUBJECTIVE: Ms. Isaac feels better. Her back pain is improved. OBJECTIVE: VITAL SIGNS: She is afebrile. Vital signs are stable. ABDOMEN: Tolerating GI soft diet. Her abdomen is soft, still persistent tenderness in the right lower quadrant. Localized guarding, but no rebound. ASSESSMENT: 1. Crohn's with right lower quadrant phlegmon. 2. Obstructing right kidney stone status post extraction and stent. PLAN: I think some of this exacerbation was related to this kidney stone. However, she does have 2 little fluid collections in the phlegmon. Surgical drainage would be frowned upon that would require ileostomy. Both fluid collections were not able to be accessed with CT-guided drainage, the more posterolateral [address] Ruiz to see the patient today, decide on antibiotic type and course of treatment. Job ID: [id number]
[2018-12-13 13:43] LABS: HBSAB Concentration 0.09 mIU/mL; Hep B Surf AB Non-Reactive (NonReactive)
--- NOTE | 2018-12-13 14:36 | PRG ---
DATE OF SERVICE: 12/13/2018 SUBJECTIVE: Ms. Isaac has minimal right lower abdominal discomfort. She had marked improvement after the stone extraction and stent placement from her ureter. She has a ureteral stent in place now. OBJECTIVE: VITAL SIGNS: Temperature 98.9, pulse 80, and blood pressure 142/89. GENERAL: She is in no acute distress. Alert and oriented x3. LUNGS: Clear to auscultation bilaterally. HEART: Regular rate and rhythm without murmur. ABDOMEN: Soft, nontender, and nondistended. Bowel sounds are present. EXTREMITIES: No lower extremity edema. LABORATORY DATA: White blood cell count on presentation was 19.6. IMPRESSION: 1. Crohn ileitis. She is being treated with prednisone and Pentasa. We are waiting starting Humira once we are able to clear her from an infectious standpoint. She had indeterminate QuantiFERON, which is being evaluated by Dr. Ruiz. She also has 2 fluid collections around the cecum, which could be small abscesses. She might ultimately require home IV antibiotics for these and it will be determined whether these are drainable by Radiology or we just need to do followup imaging after IV antibiotics to verify improvement. Once we see this abscess is improving and she is either covered for the TB or if that is deemed unnecessary, then we can start the Humira. Antibodies for hepatitis A and hepatitis B surface antibody and hepatitis A total antibody are being checked. If these are negative, then she should be immunized. 2. Right lower quadrant abscesses. 3. Ureteral stone, status post extraction and stent placement. RECOMMENDATIONS: 1. Continue IV antibiotics. 2. Continue prednisone and Pentasa. 3. Discharge will depend on ultimate plan whether or not we plan drainage versus just IV antibiotics and/or she is going to require home antibiotics. 4. Check her labs in the morning. Job ID: [id number]
--- NOTE | 2018-12-13 14:45 | CON ---
DATE OF CONSULTATION: 12/13/2018 REASON FOR CONSULTATION: Intraabdominal abscesses indeterminate QuantiFERON setting, Crohn disease. HISTORY OF PRESENT ILLNESS: A 28-year-old history of Crohn disease, who developed right lower quadrant pain, initially felt to be due to inflammatory consequences of Crohn disease in the right lower quadrant. However, subsequently became more clear that she had nephrolithiasis with obstruction which required ureteroscopy with placement of a stent after stone extraction. She does have small abscesses about 2 cm in the right lower quadrant associated with probably a small area of leakage from the Crohn disease. I had been scheduled to see her in the outpatient setting for the indeterminate QuantiFERON, but this developments have precipitated our visit in the inpatient setting. Right now, she is feeling better. She denies any headaches, visual symptoms, sore throat, odynophagia, or dysphagia. No cough or sputum production. No chest pain. No abdominal pain. Maybe mild to moderate abdominal pain right lower quadrant, but more likely the usual pain she has prior to the nephrolithiasis event. No genitourinary symptoms. No joint symptoms. No neurological symptoms. PAST MEDICAL HISTORY: Crohn disease, hypertension, obesity. PAST SURGICAL HISTORY: Cholecystectomy, appendectomy, colonoscopy. SOCIAL HISTORY: Former smoker. FAMILY HISTORY: Noncontributory. CURRENT MEDICATIONS: 1. Norvasc. 2. Apresoline. 3. Pentasa. 4. Toprol. 5. Morphine. 6. Zosyn. PHYSICAL EXAMINATION: VITAL SIGNS: T-max 98.8, blood pressure 140/80, pulse 80, respirations 16, and O2 saturation 97%. SKIN: Normal peripheral IV access. No Castelan catheter. No lymphadenopathy. HEENT: Noncontributory. LUNGS: Clear to auscultation and percussion. NECK: Supple. No jugular vein distention or carotid bruits. HEART: S1 and S2. Regular rate. No S3 or S4. ABDOMEN: Soft, not distended or tender. Maybe mild tenderness in the right lower quadrant. Bowel sounds are present. MUSCULOSKELETAL: No joint inflammatory activity. NEURO: Nonfocal. Cognitive function appears to be intact. LABORATORY DATA: White cell count 19.6, hemoglobin 11, platelets 369 with 89% neutrophils. Albumin 3.5. ASSESSMENT: Crohn disease with microperforation and two relatively small abscess in the right lower quadrant, associated with nephrolithiasis in the right side which precipitated the admission most likely. She also has an recently indeterminate QuantiFERON, which was carried out in preparation for TNF inhibitor therapy and apparently there is also the need to vaccinate against varicella zoster virus. DISCUSSION: It is not clear that the fluid collections are accessible for percutaneous aspirate and cultures. The origin of those collections must be related to the underlying Crohn's inflammatory process with microperforation. The abscesses will need IV therapy forv2-3 weeks and then follow up imaging studies. Other than bacterial pathogens, fungal pathogens, particularly Tiffany is within the realm of possibilities, but other endemic fungi such as histoplasma capsulatum not completely ruled out. Regarding QuantiFERON , she has indeterminate result due to the immunosuppression associated with prednisone. Most likely, she is negative, but we will have to repeat the QuantiFERON after she is over the acute phase of illness and in terms of the varicella zoster vaccine, we will check her antibody level and go from there. Most likely, we will be able to give her the newest zoster vaccine which does not contain a live virus and can be given to patients with immunosuppressing conditions. Job ID: [id number]
[2018-12-13] MEDS: Amlodipine 10 MG TAB PO SCH (20:42)
[2018-12-14] MEDS: Piperacillin/Tazobactam 3.375 GM in Sodium Chloride 0.9% 100 ML IVPB SCH ×4 (03:48→22:42)
[2018-12-14] MEDS: Acetaminophen 500 MG TAB PO PRN ×3 (04:24→20:17)
[2018-12-14] MEDS: predniSONE 20 MG TAB PO SCH (08:26)
--- NOTE | 2018-12-14 10:53 | PDOC.GSPN ---
Surgery Progress Note: Subj - Subjective Patient reports: no new complaints Surgery Progress Note: Obj - Vital signs Vital signs: Vital Signs - Most Recent Temp Pulse Resp BP Pulse Ox 98 F 80 16 121/79 98 12/14/18 07:33 12/14/18 07:33 12/14/18 07:33 12/14/18 07:33 12/14/18 07:33 - Physical Exam General: no distress Abdomen: soft, tender (in the right lower quadrant) Surgery Progress Note: Results - Labs Result Diagrams: 12/11/18 22:25 12/11/18 22:25 Lab results: Laboratory Results - last 24 hr 12/11/18 22:25 Hepatitis A Ab Total Positive A Surgery Progress Note: A/P - Problem (1) Crohn's disease (regional enteritis) Current Visit: Yes Code(s): K50.90 - CROHN'S DISEASE, UNSPECIFIED, WITHOUT COMPLICATIONS Status: Acute - Plan Plan: s/p ureteral stent -Picc line today -Dr. Ruiz to arrange IV antibiotics
[2018-12-14] MEDS ORDERED: Iopamidol 300 61% 30 ML VIAL ONE (13:52)
--- NOTE | 2018-12-14 15:23 | SPC ---
PERIPHERAL INSERTION CENTRAL CATHETER: INDICATIONS: IV antibiotic therapy. FINDINGS: A dual-lumen 5-Uzbek PICC line placed into the left basilic vein, using venogram guidance, under flu oroscopy. The tip is positioned in the SVC/right atrium. PROCEDURE IN DETAIL: The left upper extremity was prepped and draped in a sterile manner. An IV was then placed at the an tecubital fossa of the left upper extremity. Iodinated contrast was injected into this IV, and a jessica ogram was obtained. The basilic vein was opacified and was chosen for puncture. This vein was punct ured under local anesthesia with fluoroscopic guidance. A wire was introduced into the vein, and the wire was advanced to the SVC. The catheter was then measured and cut. A sheath was then placed ove r the wire. The catheter was advanced over the wire. The peel-away sheath was removed. The wire wa s removed. The catheter was flushed and secured with a sterile dressing. There were no problems or complications. The tip of the catheter was positioned at the right atrium/SVC. POS: GUTIERREZ
[2018-12-14] MEDS: Amlodipine 10 MG TAB PO SCH (20:10)
[2018-12-15] MEDS: Piperacillin/Tazobactam 3.375 GM in Sodium Chloride 0.9% 100 ML IVPB SCH ×3 (04:44→16:56)
[2018-12-15 06:15] LABS: Varicella Zoster IgG ABS Greater than 4000 index (Immune >165)
[2018-12-15] MEDS: predniSONE 20 MG TAB PO SCH (09:15)
[2018-12-15] MEDS: Acetaminophen 500 MG TAB PO PRN (10:01)
--- NOTE | 2018-12-15 10:14 | PDOC.GSPN ---
Surgery Progress Note: Subj - Subjective Narrative: Slight worsening of cramping this morning Surgery Progress Note: Obj - Vital signs Vital signs: Vital Signs - Most Recent Temp Pulse Resp BP Pulse Ox 98.4 F 72 20 117/75 97 12/15/18 04:00 12/15/18 04:00 12/15/18 04:00 12/15/18 04:00 12/15/18 04:00 - Physical Exam General: no distress Cardiovascular: regular rate and rhythm Respiratory: clear to auscultation Abdomen: soft (Minimally tender right lower quadrant) Surgery Progress Note: Results - Labs Result Diagrams: 12/11/18 22:25 12/11/18 22:25 Lab results: Laboratory Results - last 24 hr 12/13/18 12:00 VZV IgG Antibody Greater than 4000 Surgery Progress Note: A/P - Problem (1) Crohn's disease (regional enteritis) Current Visit: Yes Code(s): K50.90 - CROHN'S DISEASE, UNSPECIFIED, WITHOUT COMPLICATIONS Status: Acute Assessment and Plan: Some cramping expected, probably related to stent. -Will make sure Sara has arranged for IV abx as outpatient -Will discuss with Dr. Mcneal
[2018-12-15 13:15] LABS: Varicella Zoster IgM ABS Less than 0.91 index (0.00-0.90)
[2018-12-15 15:54] VITALS: BP 166/81; TEMP 98.3
[2018-12-15] MEDS ORDERED: Ertapenem 1 GM in Sodium Chloride 0.9% 100 ML IVPB SCH (16:30)
[2018-12-15 17:11] LABS: CA Oxalate Monohydrate 35 % (.); CA Phosphate 63 % (.); Color Tan (.); Stone Weight 1.6 mg (.)
--- NOTE | 2018-12-15 17:43 | PRG ---
DATE OF SERVICE: 12/15/2018 SUBJECTIVE: Ms. Isaac has no significant abdominal pain. This however resolved pretty much after the extraction of her kidney stone. She has a stent in place in the right ureter. She has no abdominal pain, nausea, vomiting, diarrhea, or blood in stool. Tolerating a solid diet well. OBJECTIVE: VITAL SIGNS: Temperature 98.3, pulse 89, blood pressure 166/81. GENERAL: She is in no acute distress. Alert and oriented x3. LUNGS: Clear to auscultation bilaterally. HEART: Regular rate and rhythm without murmur. ABDOMEN: Soft, nontender, nondistended. Bowel sounds are present. EXTREMITIES: No lower extremity edema. LABORATORY DATA: No new labs today. Her hepatitis A antibody is positive. Hepatitis B antibody is nonreactive. IMPRESSION: 1. Crohn's ileitis. She is being managed with prednisone until she can be started on anti-TNF. 2. Two small abscesses in the right lower quadrant. She has a PICC line in place now and plan is for 2 to 3 weeks of IV antibiotics. Followup CT scan will be planned after that to verify improvement in the abscesses. If they continue to improve, then we will plan on starting Humira. 3. Indeterminate QuantiFERON. She most likely has not had true exposure. We will await repeat QuantiFERON value. RECOMMENDATIONS: 1. Plan is to continue prednisone 30 mg daily. She will follow up in the office in 2 weeks. In 1 week, we will drop the dose of her prednisone from 30 mg to 25 mg. 2. She should receive vaccine for hepatitis B in the future. 3. She has followup scheduled in my office. Job ID: [id number]
== END 2018-12-15 18:20 | disposition home or self-care (01) | DRG 660 ==
LOC: ERS 21:01 → SURG A 12-12 00:40
PROVIDERS: ADMIT Surgery; ATTEND Surgery
PROC: 0TC68ZZ Extirpation of Matter from Right Ureter, Via Natural or Artificial Opening Endoscopic (ICD-10-PCS; principal; 2018-12-12)
PROC: 0T768DZ Dilation of Right Ureter with Intraluminal Device, Via Natural or Artificial Opening Endoscopic (ICD-10-PCS; 2018-12-12)
PROC: 02HV33Z Insertion of Infusion Device into Superior Vena Cava, Percutaneous Approach (ICD-10-PCS; 2018-12-14)
DX: N13.2 Hydronephrosis with renal and ureteral calculous obstruction (principal); K50.014 Crohn's disease of small intestine with abscess; Z68.41 Body mass index [BMI] 40.0-44.9, adult; I10 Essential (primary) hypertension; E66.9 Obesity, unspecified; F17.210 Nicotine dependence, cigarettes, uncomplicated; Z79.52 Long term (current) use of systemic steroids; Z79.899 Other long term (current) drug therapy
CPT/HCPCS: 36569; 74177; 74420; 80053; 82365; 84703; 85025; 86706; 86708; 86787; 88300; 96361; 96374; 96375; C1751; C1758; C1769; J0131; J1335; J1720; J2001; J2185; J2250; J2270; J2405; J2543; J2704; J3010; J7050; Q9961; Q9966; Q9967

== ENCOUNTER 2019-01-10 08:07 | Outpatient (CLI) | payer BC ==
--- NOTE | 2019-01-10 12:19 | CT ---
CT OF THE ABDOMEN AND PELVIS WITH IV CONTRAST INDICATION: Follow-up abscess COMPARISON: Prior exam dated December 11, 2018 FINDINGS: ABDOMEN: Lung bases: Clear Liver: There is a stable area of focal fatty infiltration near the falciform ligament. The gallbladde r is surgically absent. Pancreas: Normal. Adrenal glands: Normal. Spleen: Normal. Kidneys: There is stable left nephrolithiasis. The right kidney is normal-appearing. Retroperitoneum of the upper abdomen: No lymphadenopathy or free fluid is identified. Pelvis: Small and large bowel: Normal Reproductive structures: Bilateral dermoids are stable. The periadnexal fluid collection seen within the right lower quadrant of the abdomen have intervally resolved. There is a mild amount of inflammatory stranding remaining within this region. A few mildly prominent mesenteric lymph nodes re main within this region. There is mild wall thickening involving a loop of ileum traversing near this region likely related to some reactive ileitis. Free fluid in pelvis: None Lymphadenopathy pelvis: No lymphadenopathy is evident. Vascular structures: Normal. Osseous structures: No acute osseous abnormality. No destructive osteolytic or osteoblastic lesion i s identified. IMPRESSION: 1. Interval resolution of the previously seen fluid collections within the right lower quadrant of th e abdomen. Mild inflammatory stranding remain within this region, adjacent to the right adnexa. There is some suspected reactive ileitis seen involving a loop of ileum adjacent to this location. A few reactive lymph nodes remain within this location. Follow-up examination in 6-8 weeks may be helpful to document complete resolution. 2. Stable bilateral dermoids. 3. Stable left nephrolithiasis 4. Cholecystectomy and appendectomy
[2019-01-10] MEDS ORDERED: Iopamidol 370 76% 100 ML VIAL ONE (15:01)
[2019-01-10] MEDS ORDERED: Iopamidol 370 76% 50 ML VIAL FS ONE (15:01)
== END 2019-01-10 08:08 | disposition home or self-care (01) ==
LOC: CT 08:07
PROVIDERS: ATTEND Internal Medicine Infectious Disease
DX: K50.914 Crohn's disease, unspecified, with abscess (principal); D36.9 Benign neoplasm, unspecified site; N20.0 Calculus of kidney; Z90.49 Acquired absence of other specified parts of digestive tract
CPT/HCPCS: 74177; Q9967

== ENCOUNTER 2020-10-24 08:57 | Day surgery (SDC) | payer BC ==
[~2020-10-24 08:57] MED LIST changes: +Acetaminophen 500 MG TAB PO PRN; -ISOVUE-370 76%-LOCM 1 ML ONE; +Ustekinumab 520 MG in Sodium Chloride 0.9% 250 ML 146 ML IV SCH; +diphenhydrAMINE 25 MG CAP PO PRN
[2020-10-24] MEDS ORDERED: Sodium Chloride 0.9% 10 ML ONE (09:06)
== END 2020-10-24 13:02 | disposition home or self-care (01) ==
LOC: ONC/OP 08:57
PROVIDERS: ATTEND Internal Medicine Gastroenterology
DX: K50.00 Crohn's disease of small intestine without complications (principal)
CPT/HCPCS: 96413; J3358; J7050; Q0163

== ENCOUNTER 2020-12-27 08:38 | Emergency (ER) | payer BC ==
[2020-12-27 09:26] LABS: #Basophils 0.1 thou/uL (0.0-0.2); #Eosinphils 0.3 thou/uL (0.0-0.7); #Lymphocytes 1.6 thou/uL (1.20-3.40); #Monocytes 0.4 thou/uL (0.11-0.59); #Neutrophils 6.6 thou/uL (1.40-6.50); %Basophils 0.9 % (0.0-1.0); %Eosinophils 3.2 % (0.0-10.0); %Lymphocytes 17.5 % (21.0-51.0); %Monocytes 4.6 % (0.0-10.0); %Neutrophils 73.8 % (42.0-75.0); Hemoglobin 14.1 g/dL (12.0-16.0); Mean Corpuscular HGB CONC 35.2 g/dL (32.0-36.0); Mean Corpuscular Hemoglobin 32.7 pg (27.0-31.0); Mean Corpuscular Volume 92.9 fL (78.0-98.0); Mean Platelet Volume 8.5 fL (7.4-10.4); Platelet Count 251 thou/uL (130-400)
[2020-12-27] MEDS ORDERED: Ketorolac Tromethamine 30 MG/ML VIAL ONE (09:27)
[2020-12-27 09:46] LABS: ALT (SGPT) 11 U/L (8-55); AST (SGOT) 14 U/L (5-34); Alkaline Phosphatase 94 U/L (40-110); Anion Gap 13 mmol/L (10-20); BUN (Urea Nitrogen) 12 mg/dL (7.0-18.7); Bilirubin, Total 0.5 mg/dL (0.2-1.2); Calc. Creatinine Clearance 0 mL/min (70-130); Calcium 8.9 mg/dL (7.8-10.44); Carbon Dioxide 22 mmol/L (22-29); Chloride 107 mmol/L (98-107); Globulin 3.6 g/dL (2.4-3.5); Glucose 88 mg/dL (70-105); Lipase 29 U/L (8-78); Potassium 3.8 mmol/L (3.5-5.1); Protein, Total 7.6 g/dL (6.0-8.3); Sodium 138 mmol/L (136-145)
[2020-12-27 10:14] LABS: Bilirubin Negative (Negative); Blood, Urine 1+ (Negative); Clarity Clear (Clear); Glucose, Urine (Dipstick) Normal (Negative); Ketone, Urine Negative (Negative); Leukocyte Negative Leu/uL (Negative); Nitrite Negative (Negative); Protein, Urine (Dipstick) 10 mg/dL (Neg-Trace); Specific Gravity, Urine 1.023 (1.002-1.036); Urobilinogen Normal mg/dL (Less than 2); WBC/HPF 0-3 HPF (0-3)
[2020-12-27 10:16] LABS: Bacteria/HPF 1+ HPF (None Seen)
[2020-12-27 10:17] LABS: Pregnancy Test - Urine (BHCG) Negative (Negative); Pregu Control Background? CLEAR/WHITE (CLR/WHITE); Pregu Control Bar Appear? YES (CONTROL BAR); Specific Gravity 1.023 (1.002-1.036)
[2020-12-27] MEDS ORDERED: Iopamidol-370 76% 500 ML 1 ML ONE (11:19)
== END 2020-12-27 11:51 | disposition home or self-care (01) ==
LOC: ERS 08:38
DX: N13.2 Hydronephrosis with renal and ureteral calculous obstruction (principal); I10 Essential (primary) hypertension; E28.2 Polycystic ovarian syndrome; K50.90 Crohn's disease, unspecified, without complications; F17.210 Nicotine dependence, cigarettes, uncomplicated; Z79.899 Other long term (current) drug therapy
CPT/HCPCS: 36415; 74177; 80053; 81003; 81015; 81025; 83690; 85025; 96365; J1885; Q9967